=== PATIENT | female | born 1980 | race Caucasian/White ===

== ENCOUNTER → 2023-11-03 11:22 | Outpatient (BNVA) | payer MEDICAID, SELFPAY | PROVIDERS: PCP Nurse Practitioner; Visit Provider Student in an Organized Health Care Education/Training Program | DX: B20 Human immunodeficiency virus [HIV] disease (principal); Z21 Asymptomatic human immunodeficiency virus [HIV] infection status | CPT/HCPCS: 36415; 80053; 81003; 81015; 81381; 85025; 86360; 86480; 86592; 86705; 86706; 86709; 86777; 86803; 87340; 87491; 87536; 87591 ==

== ENCOUNTER 2023-12-23 09:06 | Outpatient (CLI) | payer MEDICAID, SELFPAY ==
[2023-12-24 17:19] LABS: HIV RNA (CPY/ML) <1.30 DETECTED (NOT DETECTED); HIV RNA LOG <20 DETECTED copies/mL (NOT DETECTED)
== END 2023-12-23 09:07 | disposition home or self-care (01) ==
LOC: LAB 09:08
PROVIDERS: Visit Provider Student in an Organized Health Care Education/Training Program
DX: B20 Human immunodeficiency virus [HIV] disease (principal)
CPT/HCPCS: 36415; 87536

== ENCOUNTER → 2024-02-09 10:02 | Outpatient (BNVA) | payer MEDICAID, SELFPAY | PROVIDERS: Visit Provider Student in an Organized Health Care Education/Training Program | DX: Z71.85 Encounter for immunization safety counseling (principal); B20 Human immunodeficiency virus [HIV] disease | CPT/HCPCS: 36415; 80053; 81001; 86360; 87536 ==

== ENCOUNTER 2024-02-26 09:55 | Emergency (ER) | payer MEDICAID, SELFPAY ==
[2024-02-26] VITALS (7 sets, daily range): BP systolic 103–132; BP diastolic 80–88; PULSE 92–120; RESP 17; TEMP 36.9; O2SAT 91–98
--- NOTE | 2024-02-26 10:25 | CT_ITS ---
WS: [id number] CT ABDOMEN PELVIS TECHNIQUE: Contrast-enhanced CT of the abdomen and pelvis with coronal and sagittal reformatted image s. CLINICAL INFORMATION: abd pain COMPARISON: None. DLP: 590.[address] scans at [facility] use at least one of these dose optimization techniques: automated e xposure control; mA and/or kV adjustment per patient size (includes targeted exams where dose is matc hed to clinical indication); or iterative reconstruction. FINDINGS: Hepatomegaly. Diffuse fatty infiltration of the liver. Prior cholecystectomy. Normal GE junction. Dif fuse gastric rugal enhancement suspicious for gastritis. Enhancement extends into the duodenum suspic ious for duodenitis. Adrenal glands are normal. No hydronephrosis. Normal renal parenchymal enhancement. Normal portal vei n and splenic vein. Normal pancreatic parenchymal enhancement. Celiac and SMA are patent. Lung bases are well aerated. Normal caliber abdominal aorta. Mild aortic calcification. Normal sigmoid colon. No evidence of small or large bowel obstruction. Normal appendix in the RIGHT l ower quadrant. Trace fluid in the pelvis. Multi follicular ovaries LEFT greater than RIGHT. Normal lumbar spine. CT/CT abdomen pelvis w con* [id number] IMPRESSION: 1. Findings suspicious for gastroduodenitis described above. 2. Hepatomegaly with mild diffuse fatty infiltration of the liver. 3. Prior cholecystectomy and hysterectomy. 4. Multi follicular ovaries LEFT greater than RIGHT. Trace free fluid in the p jarvis. 5. No other suspicious findings.
[2024-02-26 10:59] LABS: Basophils % 0.3 %; Eosinophils % 0.1 %; Hematocrit 42.1 % (36-47); Lymphocytes % 13.3 %; Mean Corpuscular HGB Conc 34.4 g/dL (30-55); Mean Corpuscular Volume 98.8 fl (85-98); Mean Platelet Volume 11.9 fL (7.4-10.4); Monocytes # 0.3 10^3/uL (0.2-0.9); Monocytes % 4.4 %; Neutrophils % 81.6 %; Nucleated Red Blood Cells % 0 %; Platelet Count 222 10^3/cmm (157-399); Red Blood Count 4.26 10^6/uL (3.85-5.65); White Blood Count 7.23 10^3/uL (3.29-11.43)
[2024-02-26 11:19] LABS: Alanine Aminotransferase 14 U/L (0-33); Albumin Level 4.5 g/dL (3.5-5.2); Alkaline Phosphatase 56 U/L (35-105); Anion Gap 14.7 (5-19); Aspartate Amino Transferase 19 U/L (0-32); Blood Urea Nitrogen 7 mg/dL (6-20); Calcium 9.7 mg/dL (8.5-10.5); Carbon Dioxide 24 mmol/L (22-29); Chloride 105 mmol/L (98-107); Creatinine Clr Calc Pharmacy 92.4293; Glomerular Filtration Rate 78.3 mL/min (90-130); Glucose 115 mg/dL (65-115); Lipase 19 U/L (13-60); Magnesium 1.6 mg/dL (1.7-2.3); Osmolality Calculated 289 mOsm/kg (285-295); Potassium 3.7 mmol/L (3.5-5.1); Sodium 140 mmol/L (136-145); Total Bilirubin 0.4 mg/dL (0.15-1.2); Total Protein 7.5 g/dL (6.6-8.7)
[2024-02-26 11:28] LABS: HCG, Serum Qual Negative (Negative)
[2024-02-26] MEDS: acetaminophen 1,000 MG/100 ML PIGGYBACK 400 MG IV (13:42)
[2024-02-26] MEDS: iohexol 350 mg/mL 500 mL Btl (per mL) IV (13:51)
--- NOTE | 2024-02-26 14:58 | ED_ITS ---
HPI - Abdominal Pain 2 General: Chief Complaint: Abdominal Pain Stated Complaint: abd pain, overall pain, vommiting, diarreah Time Seen by Provider: 02/26/24 13:19 History of Present Illness: 43-year-old female with history of chron ic abdominal pain presents to the emergency room with an exacerbation of her abdominal pain. She has mid epigastric upper abdominal pain. She has had some nausea and vomiting. No diarrhea. This is similar to previous episodes but somewhat worse at this time. No known fevers. No chest pain. No altered mental status. Related Data Home Medications Medication Instructions Recorded Confirmed hydroxyzine HCl 25 mg tablet 25 tab PO DAILY 12/11/21 02/26/24 Previous Rx's Medication Instructions Recorded elviteg 150 mg-cob 150 mg-emtricit 1 tab PO DAILY 30 days #30 tabs 02/09/24 200 mg-tenofo alafenam 10 mg tablet (Genvoya) famotidine 40 mg tablet 40 mg PO DAILY #30 tabs 02/26/24 sucralfate 1 gram tablet (Carafate) 1 g PO TID 4 weeks #84 tabs 02/26/24 Allergies Allergy/AdvReac Type Severity Reaction Status Date / Time codeine Allergy ALGY-Hives Verified 02/09/24 09:08 Review of Systems 2 Narrative: Constitutional symptoms: Negative except as documented in HPI. Skin symptoms: Negative except as documented in HPI. Eye symptoms: Negative except as documented in HPI. ENMT symptoms: Negative except as documented in HPI. Respiratory symptoms: Negative except as documented in HPI. Cardiovascular symptoms: Negative except as documented in HPI. Gastrointestinal symptoms: Negative except as documented in HPI. Genitourinary symptoms: Negative except as documented in HPI. Musculoskeletal symptoms: Negative except as documented in HPI. Neurologic symptoms: Negative except as documented in HPI. Psychiatric symptoms: Negative except as documented in HPI. Endocrine symptoms: Negative except as documented in HPI. PFSH ED 2 PFSH: Medical History HIV (human immunodeficiency virus infection) Social History Smoking and tobacco/nicotine status: current every day tobacco/nicotine user Physical Exam 2 Narrative: EXAM NARRATIVE: General: Alert, no acute distress. Skin: Warm, dry. Head: Normocephalic, atraumatic. Neck: Supple, trachea midline. Eye: Extraocular movements are intact. Ears, nose, mouth and throat: mucosa moist. Cardiovascular: Regular, Normal peripheral perfusion. Respiratory: Lungs are clear to auscultation, respirations are non-labored, breath sounds are equal, Symmetrical chest wall expansion. Gastrointestinal: Soft, upper abdominal pain, Non distended Musculoskeletal: Normal ROM, no deformity. Neurological: Alert and oriented, No focal neurological deficit observed. Psychiatric: Cooperative, appropriate mood & affect. Course 2 Vital Signs: Vital signs: Vital Signs Temperature 98.5 F 02/26/24 10:26 Pulse Rate 93 02/26/24 10:26 Respiratory Rate 17 02/26/24 10:26 Blood Pressure 132/88 02/26/24 10:26 Pulse Oximetry 96 02/26/24 10:26 Oxygen Delivery Me thod Room Air 02/26/24 10:26 MDM - Abdominal Pain Medical Decision Making Medical decision making: Differential diagnosis including but not limited to and based on the above HPI, review of systems and physical exam: In this patient with epigastric pain differential would include cholelithiasis or cholecystitis. Hepatitis. Diverticulitis. Constipation. UTI. colitis. small bowel obstruction. crohn's flare. pancreatitis. gastritis. peptic ulcer. also concern for acute cardiac event. Orders placed to evaluate differential diagnosis based on the above differential, HPI and physical exam Lab Review: Laboratory results were reviewed and interpreted by myself the emergency room physician. No leukocytosis. No anemia. No renal failure. Lipase is normal. CT of the abdomen pelvis with contrast: Findings suspicious for gastroduodenitis. No other acute findings. Prior cholecystectomy and hysterectomy. I discussed these findings with the radiologist on-call. This was reviewed and interpreted by myself the emergency room physician. I also reviewed the radiology report. I reviewed the patient's medical record. Reexamination: Patient remained stable. No increased work of breathing. No altered mental status. No focal motor deficits. Pain is somewhat improved with Tylenol and Ativan. Assessment and plan: Abdominal pain ?IV Tylenol and IV Ativan in the emergency room. We discussed that she needs to follow-up with Dr. Hsu and perhaps needs gastroenterology to help evaluate her chronic abdominal pain ?CT scan shows possible gastroenteritis and so I am starting her on some Carafate and famotidine - Discharged home - Discussed findings and plan with patient. Answered any questions. - All laboratory values were reviewed and interpreted personally by myself, the ER physician - All imaging was reviewed and interpreted personally by myself, the ER physician. - Evaluation and treatment of this problem were appropriate in the emergency setting Lab Data 02/26/24 10:44 02/26/24 10:44 Labs/Radiology: Radiology Impressions Abdomen/Pelvis CT 02/26/24 10:25 IMPRESSION: 1. Findings suspicious for gastroduodenitis described above. 2. Hepatomegaly with mild diffuse fatty infiltration of the liver. 3. Prior cholecystectomy and hysterectomy. 4. Multi follicular ovaries LEFT greater than RIGHT. Trace free fluid in the pelvis. 5. No other suspicious findings. Laboratory Results WBC 7.23 10^3/uL (3.29-11.43) 02/26/24 10:44 RBC 4.26 10^6/uL (3.85-5.65) 02/26/24 10:44 Hgb 14.50 g/dL (11.27-16.99) 02/26/24 10:44 Hct 42.1 % (36-47) 02/26/24 10:44 MCV 98.8 fl (85-98) H 02/26/24 10:44 MCH 34.0 pg (27-33) H 02/26/24 10:44 MCHC 34.4 g/dL (30-55) 02/26/24 10:44 RDW 12.0 % (12.1-15.1) L 02/26/24 10:44 Plt Count 222 10^3/cmm (157-399) 02/26/24 10:44 MPV 11.9 fL (7.4-10.4) H 02/26/24 10:44 Neut % (Auto) 81.6 % 02/26/24 10:44 Lymph % (Auto) 13.3 % 02/26/24 10:44 Jasper % (Auto) 4.4 % 02/26/24 10:44 Eos % (Auto) 0.1 % 02/26/24 10:44 Baso % (Auto) 0.3 % 02/26/24 10:44 Neut # (Auto) 5.90 10^3/uL (1.8-7.7) 02/26/24 10:44 Lymph # (Auto) 1.0 10^3/uL (0.8-4.8) 02/26/24 10:44 Jasper # (Auto) 0.3 10^3/uL (0.2-0.9) 02/26/24 10:44 Eos # (Auto) 0.0 10^3/uL (0.0-0.8) 02/26/24 10:44 Baso # (Auto) 0.0 10^3/uL (0.0-0.1) 02/26/24 10:44 Nucleated RBC % (auto) 0 % 02/26/24 10:44 Nucleated RBCs # 0.0 /100WBC 02/26/24 10:44 Sodium 140 mmol/L (136-145) 02/26/24 10:44 Potassium 3.7 mmol/L (3.5-5.1) 02/26/24 10:44 Chloride 105 mmol/L (98-107) 02/26/24 10:44 Carbon Dioxide 24 mmol/L (22-29) 02/26/24 10:44 Anion Gap 14.7 (5-19) 02/26/24 10:44 BUN 7 mg/dL (6-20) 02/26/24 10:44 Creatinine 0.8 mg/dL (0.5-0.9) 02/26/24 10:44 GFR Calculation 78.3 mL/min (90-130) L 02/26/24 10:44 Glucose 115 mg/dL (65-115) 02/26/24 10:44 Calculated Osmolality 289 mOsm/kg (285-295) 02/26/24 10:44 Calcium 9.7 mg/dL (8.5-10.5) 02/26/24 10:44 Magnesium 1.6 mg/dL (1.7-2.3) L 02/26/24 10:44 Total Bilirubin 0.4 mg/dL (0.15-1.2) 02/26/24 10:44 AST 19 U/L (0-32) 02/26/24 10:44 ALT 14 U/L (0-33) 02/26/24 10:44 Alkaline Phosphatase 56 U/L (35-105) 02/26/24 10:44 Total Protein 7.5 g/dL (6.6-8.7) 02/26/24 10:44 Albumin 4.5 g/dL (3.5-5.2) 02/26/24 10:44 Globulin 3.0 g/dL (1.3-4.6) 02/26/24 10:44 Lipase 19 U/L (13-60) 02/26/24 10:44 HCG, Qual Negative (Negative) 02/26/24 10:44 All radiology interpretation(s) finalized by discharge Discharge Plan Discharge Patient Disposition: Home Clinical Impression: Abdominal pain Condition: Stable Prescriptions: New sucralfate [Carafate] 1 gram tablet 1 g PO TID 28 Days Qty: 84 0RF Rx Instructions: with meals famotidine 40 mg tablet 40 mg PO DAILY Qty: 30 0RF No Action Genvoya [phone] mg tablet 1 tab PO DAILY 30 Days Qty: 30 6RF Rx Instructions: must administer with a meal/food hydroxyzine HCl 25 mg tablet 25 tab PO DAILY Discharge Orders: Discharge ED (Routine); Ordered 02/26/24 Ordered By: Ryanne Ayala Discharge Diet: Usual diet Discharge Activity: Increase activity as tolerated Patient Instructions: Abdominal Pain (ED), Opioid Safety, Pain Management Activity Restrictions/Additional Instructions: Thank you for choosing [facility] for your healthcare needs today. Please realize this is an emergency room and that we are providing you with a medical screening exam and this may not be complete and all inclusive of all the testing and or work up that you may need to determine your ailment or severity of your illness. You have been screened and evaluated and felt safe for discharge. Health conditions do change or evolve sometimes and as such it is important that you follow up with your Primary Doctor to be re checked, 3-5 days is a general good time frame for follow up. You are always welcome to return to the ED for re assessment if your symptoms are worsening or you have new concerns Coding Level of Care Code ED Composition Siding Worker for Garry Rico
[2024-02-26 15:34] LABS: Bilirubin Urine Negative (Negative); Blood Urine Negative (Negative); Glucose Urine UA Negative (Normal); Ketones Urine 2+ (Negative); Leukocyte Esterase Urine Negative (Negative); Nitrate Urine Negative (Negative); Protein Urine 1+ (Negative); Urine Appearance Clear (CLEAR); Urine Color Yellow (Yellow); pH Urine 5.5 (5-7)
[2024-02-26 15:59] LABS: Specific Gravity, Urine >= 1.099 (1.005-1.030); UA Manual Slide Review YES
[2024-02-26 16:00] LABS: Add Urine Microscopic? YES; Bacteria Urine TRACE /hpf; WBC Urine 0-4 /hpf (0-5)
== END 2024-02-26 15:28 | disposition home or self-care (01) ==
PROVIDERS: Physician Assistant; Emergency Provider Emergency Medicine
DX: R10.9 Unspecified abdominal pain (principal)
CPT/HCPCS: 36415; 74177; 80053; 81001; 83690; 83735; 84703; 85025; 96365; 99285; J0131